=== PATIENT | male | born 1980 | race African-American/Black ===

== ENCOUNTER 2021-03-28 09:41 | Emergency (ER) | payer OTHER ==
[~2021-03-28] VITALS: Ht 177.8 cm; Wt 115.7 kg
== END 2021-03-28 10:18 | disposition home or self-care (01) ==
LOC: ER 09:41
DX: H10.33 Unspecified acute conjunctivitis, bilateral (principal)

== ENCOUNTER 2025-02-11 17:38 | Inpatient (IN) | payer OTHER ==
[~2025-02-11] VITALS: Ht 177.8 cm; Wt 117.9 kg
--- NOTE | 2025-02-11 18:33 | NUR ---
PTE ALERTA Y ORIENTADO X3 REFIERE VENIR A JOHN DEBIDO A QUE LE MISMO LLEVA SINTIENDO PALPITACIONES Y TAQUICARDIA DESDE LEANNA. AL MOMENTO DEL TRIAGE PTE REFIERE NO TENER PALPITACION. AL MEDIR VITALES PTE NO SE OBSERVA CON TAQUICARDIA DOMONIQUE LAS PRESIONES ESTABAN ELEVADAS. SE RALIZA EKG Y SE PRESENTA A DRA ROCKWELL.
[2025-02-11] MEDS ORDERED: NIFEDIPINE 10 MG CAPSULE PO ONE ×2 (18:54→19:00)
[2025-02-11 19:11] LABS: BASO % 1.1 % (0.1-1.2); EOS # 0.13 (0.04-0.54); EOS % 2.4 % (0.7-7.0); LYMPH # 2.28 (1.18-3.74); LYMPH % 42.3 % (19.3-53.1); MEAN PLATELET VOLUME 9.80 fl (9.4-12.4); MONO # 0.76 (0.24-0.82); NEUT # 2.15 (1.56-6.13); NEUT % 39.9 % (34.0-71.1); RED CELL DISTRIBUTION WIDTH 11.6 % (11.6-14.4)
--- NOTE | 2025-02-11 19:12 | NUR ---
SE ORIENTA A PACIENTE SOBRE ORDEN MEDICA EL MISMO REFIERE ENTENDER Y ACEPTA.
[2025-02-11 19:14] LABS: MONO % 14.1 % (4.7-12.5)
[2025-02-11] MEDS ORDERED: TICAGRELOR 90 MG TABLET PO ONE (20:00)
[2025-02-11] MEDS ORDERED: NITROGLYCERIN IN 5 % DEXTROSE 250 ML IV SCH (20:00)
[2025-02-11] MEDS ORDERED: NITROGLYCERIN IN 5 % DEXTROSE 50 MG/250 ML BOTTLE IV ONE (20:19)
[2025-02-11 21:13] LABS: INR 1.01
--- NOTE | 2025-02-11 21:17 | NUR ---
SE RECIBE PACIENTE AL AREA DE ICU #2 POR SUP N BIANKA. IVAN CONECTA A MONITOR CARDIACO CON SATUROMETRIS. LO ORIENTA DE TRATAMIENTO JAVIER ORDEN MEDICA. LE REFIERE ENTENDER. SUP N BIANKA CANALIZA Y COLECTA MUESTRAS CON MEDIDAS ASEPTICAS CORRESPONDIENTES Y NOTIFICA CT. DRA Varinder ROCKWELL INDICA NO ADMINISTRAR MEDICAMENTOS HASTA LECTURA DE CT. PACIENTE EN CAMA #3 AREA DE ICU 2 CON BARANDAS ELEVADAS POR HENDERSON SEGURIDAD. SE MONITOREA POR CAMBIOS.
--- NOTE | 2025-02-11 22:32 | NUR ---
SE ORIENTA PACIENTE DE MEDICAMENTOS JAVIER ORDEN MEDICA. REFIERE ENTENDER. SE ADMINISTRAN CON MEDIDAS ASSEPTICAS CORRESPONDIENTES. SE MONITOREA POR CAMBIOS SIGNIFICATIVOS.
[2025-02-11] MEDS ORDERED: MORPHINE SULFATE 2 MG/ML SYRINGE IV PRN (23:30)
[2025-02-11] MEDS ORDERED: ONDANSETRON HCL 2 MG/ML VIAL IV PRN (23:30)
[2025-02-12] LABS: URINE APPEARANCE Clear; URINE BILIRRUBIN Negative (NEGATIVE); URINE BLOOD Negative; URINE COLOR Yellow; URINE GLUCOSE Negative (NEGATIVE); URINE KETONE Trace (NEGATIVE); URINE LEUKOCYTE Small; URINE NITRATE Negative; URINE PROTEIN Negative (NEGATIVE); URINE UROBILINOGEN 1.0 E.U./dl
--- NOTE | 2025-02-12 | NUR ---
2300 SE RECIBE A PTE EN ICU2 CAMA 3. SE OBSERVA A PTE ALERTA Y ORIENTADO X3. PTE CONECTADO A MONITOR CARDIACO Y OXIMETRIA DE PULSO. PTE CON BETY INTACTO. SE OBSERVA CON VENOPUNCION EN MANO LT PATENTE CON TRIDIL 50MG/250ML BAJANDO A 1ML/HR. PTE PENDIENTE A LAB Y CT. 0000 SE REALIZA MUESTRA DE LAB JAVIER ORDEN MEDICA Y BAJO MEDIDAS ASEPTICAS. SE COLOCA N/C A 2LT/MIN. SE REALIZA VENOPUNCION CON ANGIO 18 BAJO MEDIDAS ASEPTICAS.
[2025-02-12 00:06] LABS: URINE BACTERIA 1691.8 uL (0.0-1933); URINE EPITHELIAL CELLS 21.5 uL (0.0-38.8); URINE RBC 3.0 uL (0.0-20.8); URINE WBC 32.9 uL (0.0-23.2)
[2025-02-12 00:07] LABS: URINE CAST 0.14 uL (0.0-1.40)
[2025-02-12 00:20] LABS: COCAINE NEGATIVE (NEGATIVE); METHADONE NEGATIVE (NEGATIVE); OPIATES NEGATIVE (NEGATIVE); THC ( Cannabinoids) NEGATIVE (NEGATIVE)
--- NOTE | 2025-02-12 02:00 | NUR ---
0200 SE RECIBE VALOR PANICO DE TROPININA, SE NOTIFICA A MD CRAWFORDO. PTE EN TRATAMIENTO.
[2025-02-12 02:28] LABS: ALT/SGPT 42.0 U/L (12-78); AST/SGOT 43.0 U/L (15-37); BILIRUBIN TOTAL 1.46 mg/dL (0.3-1.2); BUN CREA RATIO 21.0 (7.0-25.0); CREATININE SERUM 0.63 mg/dL (0.70-1.30); GFR 137.72; GLOBULINA 4.4 G/DL (2.4-3.5); GLUCOSE FASTING 101.0 mg/dL (65-100); OSMOLALITY SERUM 276.0 MOSM/KG (275-295)
--- NOTE | 2025-02-12 07:53 | NUR ---
SE RECIBE PTE ALERTA Y ORIENTADO X3. EN CAMA BAJA CON BARANDAS ELEVADAS POR SEGURIDAD. CONECTADO A MONITOR CARDIACO Y OXIMETRIA DE PULSO CONTINUA. CANALIZACION PATENTE, PRANAV DE EDEMA Y ERITEMA, RECIBIENDO DRIP DE TRIDIL A 1ML/HR. PTE ORINANDO ESPONTANEO. SE MANTIENE EN OBSERVACION POR CAMBIOS
[2025-02-12] MEDS ORDERED: FAMOTIDINE/PF 20 MG/2 ML VIAL ONE (07:54)
[2025-02-12] MEDS ORDERED: LOSARTAN POTASSIUM 50 MG TABLET PO ONE (08:30)
[2025-02-12] MEDS ORDERED: FAMOtidine 10 MG/ML (4ML VIAL) IV SCH (09:00)
[2025-02-12] MEDS ORDERED: NITROGLYCERIN 50MG IN NSS (KIT INCLUYE LINEA) IV SCH (09:30)
[2025-02-12] MEDS ORDERED: ACETAMINOPHEN 325 MG TABLET PO PRN (09:30)
[2025-02-12 09:47] VITALS: BP 165/74; O2SAT 99
[2025-02-12 11:57] VITALS: BP 153/88; O2SAT 99
[2025-02-12 16:00] VITALS: BP 153/95; O2SAT 99
[2025-02-12] MEDS ORDERED: AMLODIPINE BESYLATE 5 MG TABLET PO SCH (20:46)
[2025-02-12] MEDS ORDERED: ENOXAPARIN SODIUM 60 MG/0.6 ML SYRINGE SUBCUTANEO SCH (21:00)
[2025-02-12] MEDS ORDERED: ENOXAPARIN SODIUM 80 MG/0.8 ML SYRINGE SUBCUTANEO SCH (21:00)
[2025-02-13 01:29] VITALS: BP 140/83; O2SAT 97
[2025-02-13] MEDS ORDERED: METOPROLOL SUCCINATE 25 MG TAB.SR.24H PO SCH (09:00)
[2025-02-13] MEDS ORDERED: LOSARTAN POTASSIUM 50 MG TABLET PO SCH (09:00)
[2025-02-13] MEDS ORDERED: ASPIRIN 325 MG TABLET PO SCH (09:00)
[2025-02-13] MEDS ORDERED: FAMOTIDINE/PF 20 MG/2 ML VIAL IV SCH (09:00)
[2025-02-13] MEDS ORDERED: ATORVASTATIN CALCIUM 40 MG TABLET PO SCH (09:00)
[2025-02-13 09:30] VITALS: BP 150/100; O2SAT 98
== END 2025-02-13 14:53 | disposition home or self-care (01) | DRG 282 ==
LOC: ER 17:38 → SURH 02-12 11:31 → MEDJ 02-12 11:31 → SURH 02-12 13:45
PROVIDERS: General Practice; ADMIT Internal Medicine; ATTEND Internal Medicine
PROC: BB24YZZ Computerized Tomography (CT Scan) of Bilateral Lungs using Other Contrast (ICD-10-PCS; principal; 2025-02-11)
PROC: B246ZZZ Ultrasonography of Right and Left Heart (ICD-10-PCS; 2025-02-12)
PROC: 4A12X4Z Monitoring of Cardiac Electrical Activity, External Approach (ICD-10-PCS; 2025-02-12)
DX: I21.4 Non-ST elevation (NSTEMI) myocardial infarction (principal); I16.0 Hypertensive urgency; R00.2 Palpitations